=== PATIENT | male | born 1945 | race Caucasian/White ===

== ENCOUNTER → 2017-07-18 | Outpatient (CLI) | payer OTHER ==
--- NOTE | 2017-07-18 13:55 | DIAGNOSTIC IMAGING REPORT ---
R SHOULDER MIN 2 VIEWS ROUTINE CLINICAL HISTORY: 72 years-old Male presenting with PAIN IN RIGHT SHOULDER. TECHNIQUE: Internal rotation, external rotation, Grashey views of the right shoulder were obtained. COMPARISON: None. FINDINGS: Glenohumeral and acromioclavicular joints congruent. No acute fracture or malalignment. No advanced degenerative change. No radiographic soft tissue abnormality. IMPRESSION: No acute osseous injury. Electronically signed by: Jose Armando Claudio M.D. 07/18/2017 1:53 PM Dictated Date/Time: 07/18/2017 1:52 PM
--- NOTE | 2017-07-18 14:17 | DIAGNOSTIC IMAGING REPORT ---
CERVICAL SPINE 6 VIEWS CLINICAL HISTORY: Right shoulder pain. Cervicalgia. FINDINGS: AP, lateral, bilateral oblique, odontoid, and swimmer's views of the cervical spine are obtained. No prior studies are available for comparison at the time of dictation. The skeletal structures are osteopenic. There is no radiographic evidence of fracture or subluxation. There is mild straightening of the cervical lordosis. Vertebral body height and alignment are maintained throughout the cervical spine. The spinolaminar line is preserved. The odontoid process and lateral masses are intact as seen on the open-mouth view. The atlantodental articulation appears maintained noting productive degenerative change. Anterior osteophytes are seen in the lower cervical region. The spinous processes appear intact. Multilevel facet arthropathy is observed. No high-grade neural foraminal stenosis is suggested on the oblique views. There is moderate disc space narrowing at C5-C6 and C6-C7. Small posterior disc osteophyte complexes at these levels may contribute to mild acquired compromise of the central canal. The prevertebral soft tissues are normal in appearance. The visualized apical lung parenchyma appears clear. IMPRESSION: 1. No acute bony abnormality is seen involving the cervical spine. 2. Osteopenia and spondylotic change as above. Dictated: 07/18/2017 1:46 PM Transcribed: 07/18/2017 2:17 PM [email or web address] Electronically signed by: Yogesh Cortes M.D. 07/18/2017 2:19 PM Dictated Date/Time: 07/18/2017 1:46 PM
== END | disposition home or self-care (01) ==
LOC: C.RAD1850 12:53
PROVIDERS: ATTEND Nurse Practitioner Family
DX: M85.88 Other specified disorders of bone density and structure, other site (principal); M25.511 Pain in right shoulder